=== PATIENT | male | born 1935 | race Caucasian/White ===

== ENCOUNTER 2016-10-15 13:58 | Outpatient (CLI) | payer MEDICARE, BC ==
[2016-01-08 09:27] VITALS: O2SAT 100
== END 2016-10-15 13:59 | disposition home or self-care (01) | DRG 950 ==
LOC: CONVCARE 13:58
PROVIDERS: ATTEND Orthopaedic Surgery
DX: S46.012D Strain of muscle(s) and tendon(s) of the rotator cuff of left shoulder, subsequent encounter (principal)
CPT/HCPCS: 73030

== ENCOUNTER 2018-01-06 12:13 | Outpatient (CLI) | payer MEDICARE, BC ==
[2016-01-08 09:27] VITALS: O2SAT 100
== END 2018-01-06 12:14 | disposition home or self-care (01) | DRG 556 ==
LOC: CONVCARE 12:13
PROVIDERS: ATTEND Orthopaedic Surgery
DX: M25.512 Pain in left shoulder (principal); M25.562 Pain in left knee
CPT/HCPCS: 73562

== ENCOUNTER 2018-03-03 07:25 | Day surgery (SDC) | payer MEDICARE, BC ==
[2018-03-03] MEDS ORDERED: MIDAZOLAM 2 MG/2 ML SOL ONE (08:58)
[2018-03-03] MEDS ORDERED: FENTANYL 100MCG/2ML SOL ONE (08:58)
[2018-03-03] MEDS ORDERED: PROPOFOL 10 MG/ML 200 MG/20 ML EMU IV ONE ×2 (08:58→10:21)
[2018-03-03] MEDS ORDERED: CEFAZOLIN SODIUM 1 GM PDS ONE (08:58)
[2018-03-03] MEDS ORDERED: LIDOCAINE HCL 1% MPF 30 SOL ONE (09:17)
[2018-03-03] MEDS ORDERED: HYDROMORPHONE 1 MG/ML SYRINGE ONE (11:34)
[2018-03-03 13:04] VITALS: BP 160/80; PULSE 66; RESP 14; TEMP 97.6; O2SAT 99
== END 2018-03-03 13:30 | disposition home or self-care (01) | DRG 566 ==
LOC: SURG 07:25
PROVIDERS: ATTEND Orthopaedic Surgery
DX: M20.5X1 Other deformities of toe(s) (acquired), right foot (principal); E11.9 Type 2 diabetes mellitus without complications
CPT/HCPCS: 73660; 76000; 82962; J0690; J2250; J3010; L3260; A6402; J1170; J2001; J2704

== ENCOUNTER 2018-03-17 13:07 | Outpatient (CLI) | payer MEDICARE, BC ==
[2018-03-03 13:04] VITALS: O2SAT 99
== END 2018-03-17 13:08 | disposition home or self-care (01) | DRG 950 ==
LOC: CONVCARE 13:07
PROVIDERS: ATTEND Orthopaedic Surgery
DX: Z51.89 Encounter for other specified aftercare (principal)
CPT/HCPCS: 73660

== ENCOUNTER 2018-12-09 05:28 | Inpatient (IN) | payer MEDICARE, BC, OTHER ==
[2018-12-09] MEDS ORDERED: SODIUM CHLORIDE 0.9% 1000ML 1,000 ML IV ONE (05:50)
[2018-12-09 06:27] LABS: LACTIC ACID 1.7 mMol/L (0.0-2.0)
[2018-12-09 06:33] LABS: ALBUMIN 3.2 gm/dl (3.4-5.0); BASOPHILS % (AUTO) 1 % (0-3); BILIRUBIN,TOTAL 0.5 mg/dl (0.2-1.0); CALCIUM 8.4 mg/dl (8.5-10.1); CARBON DIOXIDE 28.7 mEq/L (21-32); CREATININE 1.23 mg/dl (0.80-1.30); EOSINOPHILS % (AUTO) 3 % (0-9); HEMATOCRIT 27 % (39-53); HEMOGLOBIN 7.9 gm/dl (13.5-17.7); LYMPHOCYTES % (AUTO) 19.7 % (10-50); MEAN CORPUSCULAR HEMOGLOBIN 23.4 pg (27.0-32.0); MEAN CORPUSCULAR HGB CONC 29.6 gm/dl (32.0-36.0); MONOCYTES % (AUTO) 9.4 % (0-12); NEUTROPHILS % (AUTO) 66.9 % (37-80); TOTAL PROTEIN 6.2 gm/dl (6.4-8.2)
[2018-12-09 06:39] LABS: MEAN CORPUSCULAR VOLUME 79 fL (80-100)
[2018-12-09 06:57] LABS: ANISOCYTOSIS MOD AMT
[2018-12-09 07:29] LABS: APPEARANCE,URINE Clear; BILIRUBIN,URINE NEGATIVE (NEGATIVE); COLOR,URINE Yellow; GLUCOSE, URINE (UA) 1+ (NEGATIVE); KETONES,URINE NEGATIVE (NEGATIVE); LEUKOCYTE ESTERASE ,URINE NEGATIVE (NEGATIVE); NITRATE,URINE NEGATIVE (NEGATIVE); OCCULT BLOOD,URINE NEGATIVE (NEG-TRACE); PH,URINE 5.5; UROBILINOGEN,URINE 0.2 (0.2-1.0 EU)
[2018-12-09 08:37] LABS: RBC,URINE NEG (0-3AV/HPF)
[2018-12-09 08:38] LABS: BACTERIA NEGATIVE (< 1+); CRYSTALS NEGATIVE (0-3 AVE/HPF); WBC,URINE 0-3 (0-5AV/HPF)
[2018-12-09] MEDS ORDERED: FLUNISOLIDE NAS SCH (09:00)
[2018-12-09] MEDS ORDERED: RANITIDINE HCL 150 MG TAB PO SCH (09:00)
[2018-12-09] MEDS ORDERED: CARVEDILOL 12.5 MG TAB PO SCH (09:00)
[2018-12-09 09:24] LABS: ABO A; ANTIBODY SCREEN Negative; RH TYPE Positive; UNIT TYPE A POSITIVE
[2018-12-09 09:25] LABS: UNIT TYPE A POSITIVE
[2018-12-09] MEDS: FAMOTIDINE 20 MG TAB PO SCH (11:56)
[2018-12-09] MEDS: GLIPIZIDE 5 MG TAB PO SCH ×2 (11:57→20:45)
[2018-12-09] MEDS: AMLODIPINE 5 MG TAB PO SCH (11:57)
[2018-12-09] MEDS: INSULIN GLARGINE, RECOMBINAN 100 U/ML SOL SC SCH (12:00)
[2018-12-09] MEDS: SODIUM CHLORIDE 0.45% 1000 ML 1,000 ML IV SCH (15:37)
[2018-12-09] MEDS: LOSARTAN POTASSIUM 50 MG TAB PO SCH ×2 (16:14→17:11)
[2018-12-09] MEDS: CARVEDILOL 12.5 MG TAB PO SCH (16:19)
[2018-12-09] MEDS: NOVOLOG FLEXPEN SC SCH ×2 (18:34→20:43)
[2018-12-09] MEDS ORDERED: HYDRALAZINE HYDROCHLORIDE 10 MG TAB PO ONE (20:23)
[2018-12-09] MEDS: SENNOSIDES A AND B 8.6 MG TAB PO SCH (20:45)
[2018-12-09 21:45] LABS: *RETICULOCYTE COUNT 1.2 % (0.5-2.0)
[2018-12-10] MEDS: SODIUM CHLORIDE 0.45% 1000 ML 1,000 ML IV SCH ×2 (01:44→12:16)
[2018-12-10 07:08] LABS: CARBON DIOXIDE 25.1 mEq/L (21-32); CREATININE 1.05 mg/dl (0.80-1.30)
[2018-12-10 07:22] LABS: BASOPHILS % (AUTO) 1 % (0-3); EOSINOPHILS % (AUTO) 2 % (0-9); HEMATOCRIT 30 % (39-53); HEMOGLOBIN 8.9 gm/dl (13.5-17.7); LYMPHOCYTES % (AUTO) 26.4 % (10-50); MEAN CORPUSCULAR HEMOGLOBIN 24.4 pg (27.0-32.0); MONOCYTES % (AUTO) 8.7 % (0-12); NEUTROPHILS % (AUTO) 62.2 % (37-80)
[2018-12-10 07:29] LABS: MEAN CORPUSCULAR VOLUME 81 fL (80-100)
[2018-12-10] MEDS: NOVOLOG FLEXPEN SC SCH ×4 (08:04→20:38)
[2018-12-10] MEDS ORDERED: CHLORTHALIDONE 25 MG PO SCH (09:00)
[2018-12-10] MEDS ORDERED: CARVEDILOL 12.5 MG TAB ONE ×2 (09:15→09:30)
[2018-12-10] MEDS: GLIPIZIDE 5 MG TAB PO SCH ×2 (09:18→20:37)
[2018-12-10] MEDS: INSULIN GLARGINE, RECOMBINAN 100 U/ML SOL SC SCH (09:18)
[2018-12-10] MEDS: FAMOTIDINE 20 MG TAB PO SCH (09:18)
[2018-12-10] MEDS: AMLODIPINE 5 MG TAB PO SCH (09:18)
[2018-12-10] MEDS: CARVEDILOL 12.5 MG TAB PO SCH ×2 (09:27→20:36)
[2018-12-10 10:44] LABS: *RETICULOCYTE# 0.041 10(6)/uL (0.020-0.110)
[2018-12-10 10:47] LABS: UNIT TYPE A POSITIVE
[2018-12-10] MEDS: CHLORTHALIDONE 25 MG TAB PO SCH (11:05)
[2018-12-10] MEDS: LOSARTAN POTASSIUM 50 MG TAB PO SCH (17:32)
[2018-12-10] MEDS: SENNOSIDES A AND B 8.6 MG TAB PO SCH (20:38)
[2018-12-10] MEDS: SODIUM CHLORIDE 0.9% FLUSH 10 ML SOL IV SCH (20:43)
[2018-12-11] MEDS: SODIUM CHLORIDE 0.9% FLUSH 10 ML SOL IV SCH ×3 (06:41→20:16)
[2018-12-11 07:13] LABS: BASOPHILS % (AUTO) 1 % (0-3); EOSINOPHILS % (AUTO) 3 % (0-9); HEMATOCRIT 33 % (39-53); HEMOGLOBIN 9.8 gm/dl (13.5-17.7); LYMPHOCYTES % (AUTO) 21.6 % (10-50); MEAN CORPUSCULAR HEMOGLOBIN 24.2 pg (27.0-32.0); MEAN CORPUSCULAR HGB CONC 30.1 gm/dl (32.0-36.0); MONOCYTES % (AUTO) 9.6 % (0-12); NEUTROPHILS % (AUTO) 65.1 % (37-80)
[2018-12-11 07:14] LABS: MEAN CORPUSCULAR VOLUME 80 fL (80-100)
[2018-12-11 07:16] LABS: CALCIUM 8.5 mg/dl (8.5-10.1); CARBON DIOXIDE 25.6 mEq/L (21-32); CREATININE 1.08 mg/dl (0.80-1.30)
[2018-12-11 07:33] LABS: POIKILOCYTOSIS MOD AMT
[2018-12-11 07:34] LABS: ANISOCYTOSIS SLIGHT AMT; BURR CELLS PRESENT; OVALOCYTES PRESENT
[2018-12-11] MEDS: NOVOLOG FLEXPEN SC SCH ×4 (07:38→20:01)
[2018-12-11] MEDS: GLIPIZIDE 5 MG TAB PO SCH ×2 (08:31→20:00)
[2018-12-11] MEDS: CARVEDILOL 12.5 MG TAB PO SCH ×2 (08:31→19:59)
[2018-12-11] MEDS: CHLORTHALIDONE 25 MG TAB PO SCH (08:32)
[2018-12-11] MEDS: AMLODIPINE 5 MG TAB PO SCH ×2 (08:39→09:31)
[2018-12-11] MEDS: FAMOTIDINE 20 MG TAB PO SCH (08:40)
[2018-12-11] MEDS: POTASSIUM CHLORIDE 10 MEQ TER PO SCH ×3 (08:52→10:46)
[2018-12-11] MEDS: INSULIN GLARGINE, RECOMBINAN 100 U/ML SOL SC SCH (08:53)
[2018-12-11] MEDS: GUAIFENESIN 600 MG PO SCH ×2 (14:21→19:59)
[2018-12-11] MEDS: LOSARTAN POTASSIUM 50 MG TAB PO SCH (18:07)
[2018-12-11] MEDS: SENNOSIDES A AND B 8.6 MG TAB PO SCH (20:00)
[2018-12-12 01:39] VITALS: O2SAT 95
[2018-12-12] MEDS: SODIUM CHLORIDE 0.9% FLUSH 10 ML SOL IV SCH (06:12)
[2018-12-12 07:13] LABS: BASOPHILS % (AUTO) 1 % (0-3); EOSINOPHILS % (AUTO) 4 % (0-9); HEMATOCRIT 34 % (39-53); HEMOGLOBIN 10.6 gm/dl (13.5-17.7); LYMPHOCYTES % (AUTO) 19.9 % (10-50); MEAN CORPUSCULAR HEMOGLOBIN 25.1 pg (27.0-32.0); MEAN CORPUSCULAR HGB CONC 31.4 gm/dl (32.0-36.0); MONOCYTES % (AUTO) 10.5 % (0-12); NEUTROPHILS % (AUTO) 65.3 % (37-80)
[2018-12-12 07:19] LABS: CALCIUM 8.7 mg/dl (8.5-10.1); CARBON DIOXIDE 28.7 mEq/L (21-32); CREATININE 1.05 mg/dl (0.80-1.30)
[2018-12-12 07:21] LABS: MEAN CORPUSCULAR VOLUME 80 fL (80-100)
[2018-12-12 08:04] VITALS: BP 166/81; PULSE 70; RESP 16; TEMP 98
[2018-12-12] MEDS: NOVOLOG FLEXPEN SC SCH ×2 (08:09→11:23)
[2018-12-12] MEDS: INSULIN GLARGINE, RECOMBINAN 100 U/ML SOL SC SCH (08:10)
[2018-12-12] MEDS: GLIPIZIDE 5 MG TAB PO SCH (08:14)
[2018-12-12] MEDS: CHLORTHALIDONE 25 MG TAB PO SCH (08:14)
[2018-12-12] MEDS: CARVEDILOL 12.5 MG TAB PO SCH (08:14)
[2018-12-12] MEDS: POTASSIUM CHLORIDE 10 MEQ TER PO SCH (08:15)
[2018-12-12] MEDS: GUAIFENESIN 600 MG PO SCH (08:15)
[2018-12-12] MEDS: AMLODIPINE 5 MG TAB PO SCH (08:16)
[2018-12-12] MEDS: FAMOTIDINE 20 MG TAB PO SCH (08:16)
== END 2018-12-12 12:00 | DRG 946 ==
LOC: ED 05:28 → ACUTE CARE 06:56 → UNDOADMIN 06:56 → ACUTE CARE 08:47
PROVIDERS: ADMIT Family Medicine; ATTEND Family Medicine
PROC: F01K0ZZ Muscle Performance Assessment of Musculoskeletal System - Upper Back / Upper Extremity (ICD-10-PCS; principal; 2018-12-09)
PROC: F01K5ZZ Range of Motion and Joint Integrity Assessment of Musculoskeletal System - Upper Back / Upper Extremity (ICD-10-PCS; 2018-12-09)
PROC: F02Z0FZ Bathing/Showering Assessment using Assistive, Adaptive, Supportive or Protective Equipment (ICD-10-PCS; 2018-12-09)
PROC: F02Z3ZZ Grooming/Personal Hygiene Assessment (ICD-10-PCS; 2018-12-09)
PROC: F01L5ZZ Range of Motion and Joint Integrity Assessment of Musculoskeletal System - Lower Back / Lower Extremity (ICD-10-PCS; 2018-12-09)
PROC: 30233N1 Transfusion of Nonautologous Red Blood Cells into Peripheral Vein, Percutaneous Approach (ICD-10-PCS; 2018-12-09)
DX: R53.1 Weakness (principal); D50.9 Iron deficiency anemia, unspecified; Z98.890 Other specified postprocedural states; E11.9 Type 2 diabetes mellitus without complications; W18.30XA Fall on same level, unspecified, initial encounter; I10 Essential (primary) hypertension; I25.10 Atherosclerotic heart disease of native coronary artery without angina pectoris; E87.6 Hypokalemia
CPT/HCPCS: 36415; 70450; 71260; 74177; 80048; 80053; 81001; 82272; 82962; 83605; 85025; 86850; 86900; 86901; 86920; 96365; 99070; 99221; 99282; J1817; P9016; Q9967; A9270-GY; J1815